=== PATIENT | female | born 1950 | race Caucasian/White ===

== ENCOUNTER → 2020-08-26 | Outpatient (CLI) | payer OTHER ==
[~2020-08-26] MED LIST: BENTYL10 MG PO; CELEXA40 MG PO; DESYREL50 MG PO; DEXILANT60 MG PO; GABAPENTIN PO; GLUMETZA500 PO; GLYCOPYRROLATE 22 M1 PO; HYDROCODON-ACE1 EACH PO; LIPITOR20 MG PO; METFORMIN HCL500 MG; MOTION RELIEF25 MG PO; NORCO 5-325 TA1 EACH PO; OMEPRAZOLE40 MG PO; OXYCODONE HCL5 M1 PO; PRAVACHOL40 MG PO; PREDNISONE 20 M20 MG PO; SYNTHROID125 MCG PO
--- NOTE | 2020-08-26 13:31 | 2DMMODE ---
[place] [address] 2 D/M-MODE ECHOCARDIOGRAM Name: HUNG LAM Room: [facility]#: [id number] Admission: 08/26/20 Attend Phys: Kasia Brice, Discharge: Date of : 46 Date of Service: 08/26/20 1331 Report #: [id number] THIS REPORT FOR: cc: Kasia Brice MD, Tuongvan T. MD Liston, Michael J. MD [facility] ~ APPROVED REPORT Study performed: 08/26/2020 10:47:38 EXAM: Comprehensive 2D, Doppler, and color-flow Echocardiogram Patient Location: Out-Patient BSA: 1.69 HR: 86 bpm BP: 120/70 mmHg Other Information Study Quality: Fair Indications Syncope 2D Dimensions IVSd: 13.73 (7-11mm) LVOT Diam: 19.81 (18-24mm) LVDd: 35.77 mm PWd: 11.92 (7-11mm) Ascending Ao: 29.11 (22-36mm) LVDs: 21.17 (25-40mm) Aortic Root: 26.05 mm Volumes Left Atrial Volume (Systole) LA ESV Index: 13.60 mL/m2 Aortic Valve AoV Peak Khoi.: 1.43 m/s AO Peak Gr.: 8.18 mmHg LVOT Max P.18 mmHg AO Mean Gr.: 4.24 mmHg LVOT Mean P.15 mmHg LVOT Max V: 1.02 m/s AO V2 VTI: 23.82 cm LVOT Mean V: 0.67 m/s LOTUS (VTI): 2.39 cm2 LVOT V1 VTI: 18.44 cm Mitral Valve E/A Ratio: 0.78 [place] [address] 2 D/M-MODE ECHOCARDIOGRAM Name: HUNG LAM Room: [facility]#: [id number] Admission: 08/26/20 Attend Phys: Kasia Brice, Discharge: Date of : 46 Date of Service: 08/26/20 1331 Report #: [id number] MV Decel. Time: 240.35 ms MV E Max Khoi.: 0.61 m/s MV PHT: 69.70 ms MVA (PHT): 3.16 cm2 TDI E/Lateral E': 8.71 E/Medial E': 8.71 Medial E' Khoi.: 0.07 m/s Lateral E' Khoi.: 0.07 m/s Pulmonary Valve PV Peak Khoi.: 0.87 m/s PV Peak Gr.: 3.01 mmHg Left Ventricle The left ventricle is normal size. There is normal LV segmental wall motion. Mild concentric left ventricular hypertrophy. Left ventricular systolic function is normal. LVEF is >70%. Grade I - abnormal relaxation pattern. Right Ventricle The right ventricle is normal size. The right ventricular systolic function is normal. Atria The left atrium size is normal. The right atrium size is normal. Aortic Valve The aortic valve is normal in structure. No aortic regurgitation is present. There is no aortic valvular stenosis. Mitral Valve The mitral valve is normal in structure. Trace mitral regurgitation. No evidence of mitral valve stenosis. Tricuspid Valve The tricuspid valve is normal in structure. There is no tricuspid valve regurgitation noted. Pulmonic Valve The pulmonary valve is normal in structure. There is no pulmonic valvular regurgitation. Great Vessels The aortic root is normal in size. IVC is normal in size and collapses >50% [place] [address] 2 D/M-MODE ECHOCARDIOGRAM Name: HUNG LAM Milly Room: [facility]#: [id number] Admission: 08/26/20 Attend Phys: Kasia Brice, Discharge: Date of : 46 Date of Service: 08/26/20 1331 Report #: [id number] Pericardium There is no pericardial effusion. <Conclusion> The left ventricle is normal size. Mild concentric left ventricular hypertrophy. Left ventricular systolic function is normal. LVEF is >70%. Grade I - abnormal relaxation pattern. Trace mitral regurgitation. IVC is normal in size and collapses >50% with inspiration. <ELECTRONICALLY SIGNED> By: Geoffrey Fang MD, FACC 08/26/20 1331 30 Geoffrey Fang MD, FACC /INF
== END ==
LOC: M.CRD 08-25 13:00
PROVIDERS: ATTEND Family Medicine
DX: R55 Syncope and collapse (principal)